=== PATIENT | female | born 1965 | race Caucasian/White ===

== ENCOUNTER 2022-01-21 08:54 | Outpatient (CLI) | payer MEDICARE, SELFPAY ==
--- NOTE | 2022-01-21 09:15 | CRLHL7_ITS ---
For Patients: As a result of the Century Cures Act, medical imaging exams and procedure reports are released immediately into your electronic medical record. You may view this report before your referring provider. If you have questions, please contact your health care provider. INDICATION: Paraparesis. TECHNIQUE: Cervical spine MRI with contrast. The following sequences were obtained: Sagittal T1, T2 weighted and STIR sequences. Axial T2 gradient sequence. Axial and Sagittal T1 weighted post contrast sequences. 15 cc of Dotarem gadolinium based intravenous contrast agent was used. COMPARISON: : None. FINDINGS: : Normal cervical alignment. No recent compression fracture or marrow replacing process. Posterior fossa structures are normal. Cervical cord signal is normal. No intradural lesion. No abnormal enhancement within the cervical spinal cord, or the imaged spinal column and skull base. Multiple small nodules within the right thyroid lobe and thyroid isthmus. Mucous retention cysts within the visualized portions of the sphenoid sinuses. Discs/endplates: Mild disc height loss is disc desiccation at C5-6 and C6-7. The remaining discs exhibit normal height and signal. Findings at individual levels as follows: Craniocervical junction: Alignment is maintained. C2-C3: Trace retrolisthesis. Tiny central protrusion indents the ventral thecal sac. No spinal canal or neural foraminal stenosis. C3-C4: Trace retrolisthesis. Shallow disc osteophyte complex minimally flattens the ventral thecal sac. Right uncovertebral arthrosis contributes to mild neural foraminal stenosis. No left neural foraminal stenosis or spinal canal stenosis. C4-C5: Tiny central protrusion indents the ventral thecal sac. Left facet arthrosis. No spinal canal or neural foraminal stenosis. C5-C6: Left dorsal lateral protrusions/osteophyte flattens the ventral thecal sac and when combined with contiguous uncovertebral arthrosis results in moderate neural foraminal stenosis with potential impingement of the exiting left C6 nerve root. Right uncovertebral arthrosis contributes to mild right neural foraminal stenosis. No spinal canal stenosis. C6-C7: Small central protrusion indents the ventral thecal sac without spinal canal stenosis. Left uncovertebral arthrosis contributes to moderately advanced left neural foraminal stenosis with impingement of the exiting left C7 nerve root. Right uncovertebral arthrosis without significant right neural foraminal stenosis. C7-T1: A small right central protrusion flattens the ventral thecal sac. No spinal canal or neural foraminal stenosis. T1-2: No spinal canal or neural foraminal stenosis. IMPRESSION: : 1. The cervical cord signal is normal. No intradural pathology. No high-grade spinal canal stenosis or extrinsic cord deformity at any cervical level. 2. At C5-6, moderate left neural foraminal stenosis with potential impingement of the exiting left C6 nerve root. 3. At C6-7, moderately advanced left neural foraminal stenosis with impingement of the exiting left C7 nerve root. 4. Lower grade neural foraminal narrowing elsewhere. 5. Multinodular thyroid gland. Dictated by Noah Raza MD @ 01/21/2022 3:02:17 PM (Electronically Signed)
--- NOTE | 2022-01-21 10:15 | CRLHL7_ITS ---
For Patients: As a result of the Century Cures Act, medical imaging exams and procedure reports are released immediately into your electronic medical record. You may view this report before your referring provider. If you have questions, please contact your health care provider. INDICATION: Paraparesis. TECHNIQUE: Thoracic spine MRI with contrast. The following sequences were obtained. Sagittal T1, T2 weighted and STIR sequences. Axial T2 weighted sequences. Axial and Sagittal T1 weighted post-contrast sequences. 15 cc of Dotarem gadolinium based intravenous contrast agent was used. COMPARISON: None. FINDINGS: Normal alignment and curvature of the thoracic spine. No acute fracture or aggressive marrow lesion. No cord signal abnormality. No intraspinal mass or pathologic intraspinal enhancement. No significant abnormalities of the mediastinal, paraspinous or retroperitoneal soft tissues. Disc/endplates: [id number] disc height loss and disc desiccation at the mid to lower thoracic levels, most prominent at T7-8 and T8-9. A few small Schmorl`s node deformities are also noted. Spinal canal/neural foramina: T7-8: A left central disc extrusion with slight cranial migration contacts the cord without deforming it or contributing to significant spinal canal stenosis. T10-11: A 7 millimeter dimension right dorsal lateral disc protrusion slightly flattens the ventral cord and contributes to asymmetric mild to moderate right-sided spinal canal stenosis. No impingement of exiting nerve root. IMPRESSION: 1. At T10-11, a moderately sized right dorsal lateral disc protrusion slightly flattens the ventral cord and contributes to asymmetric mild to moderate right-sided spinal canal stenosis. No spinal canal/neural foraminal stenosis or extrinsic cord deformity elsewhere. Thoracic cord signal is normal. No intradural pathology. 2. No significant neural foraminal stenosis or impingement of exiting thoracic nerve roots. Dictated by Noah Raza MD @ 01/21/2022 3:07:50 PM (Electronically Signed)
== END 2022-01-21 08:55 | disposition home or self-care (01) ==
PROVIDERS: PCP Family Medicine
DX: G82.20 Paraplegia, unspecified (principal); M51.24 Other intervertebral disc displacement, thoracic region; M48.02 Spinal stenosis, cervical region
CPT/HCPCS: 72156; 72157; A9575